=== PATIENT | male | born 1960 | race Caucasian/White ===

== ENCOUNTER 2025-04-28 06:22 | Day surgery (SDC) | payer BC, SELFPAY | END 2025-04-28 14:30 | disposition home or self-care (01) | LOC: GI 06:22 | PROVIDERS: ATTENDING PHYSICIAN Surgery | DX: K64.9 Unspecified hemorrhoids (principal); D17.5 Benign lipomatous neoplasm of intra-abdominal organs; K57.30 Diverticulosis of large intestine without perforation or abscess without bleeding; K63.89 Other specified diseases of intestine; K62.89 Other specified diseases of anus and rectum; D49.0 Neoplasm of unspecified behavior of digestive system; D12.3 Benign neoplasm of transverse colon; D12.4 Benign neoplasm of descending colon | CPT/HCPCS: 45385; 45380; 88305 ==

== ENCOUNTER 2025-05-20 06:19 | Day surgery (SDC) | payer BC, SELFPAY ==
[2025-05-20 11:46] VITALS: BMI 26.4
[2025-05-20 11:47] VITALS: BMI 26.4
[2025-05-20 11:48] VITALS: BP 145/73
[2025-05-20] MEDS: CELEBREX 200 MG PO (11:54)
[2025-05-20] MEDS: TYLENOL 1000 MG PO (11:54)
[2025-05-20] MEDS: NORMOSOL-R/PLASMALYTE-A 1000 IV (12:02)
[2025-05-20 12:12] VITALS: BMI 26.4
[2025-05-20 16:38] VITALS: BP 119/65; BP_SYST 12
--- NOTE | 2025-05-20 16:46 | W.IMMPOSTOP ---
Addendum entered and electronically signed by Teofilo De La Rosa MD 05/20/25 17:54:
updated patient in SDS
Original Note:
Surgical Immed Post Op Note
-
Primary Surgeon: Teofilo De La Rosa MD
Assisting Surgeon: None
Pre-op Diagnosis: Rectal polyp
Post-op Diagnosis: Rectal polyp
Procedure Performed: Transanal partial-thickness excision of rectal polyp
Anesthesia Type: Sedation with local
Specimen / Cultures: Rectal polyp (stitch with 2 tails machuca distal margin, stitch with 1 tail machuca left margin)
Estimated Blood Loss: 10 mL
Complications: None
Operative Findings: Pedunculated rectal polyp originating from the right posterior distal rectum, distal margin abutting the dentate line; excised polyp in its entirety with visibly negative margin; closed defect transversely with interrupted 2-0
Vicryl's; placed Gelfoam within the anal canal for prophylaxis and gauze with silk tape for dressing
[2025-05-20 16:49] VITALS: BP 115/61
--- NOTE | 2025-05-20 16:49 | OR.RPT ---
Operative Report
Operative Report
DATE OF OPERATION: 05/20/2025
SURGEON: Teofilo De La Rosa MD
PREOPERATIVE DIAGNOSIS: Distal rectal polyp
POSTOPERATIVE DIAGNOSIS: Distal rectal polyp
OPERATION: Exam under anesthesia, transanal partial�thickness excision of distal rectal polyp, bilateral pudendal nerve block
ASSISTANTS:
1. None
ANESTHESIA: Sedation with local
ESTIMATED BLOOD LOSS: 10 mL
FINDINGS:
1. Distal rectal polyp seen in the right posterior position with pedunculated and papillary appearance; distal margin was millimeters from the dentate line
2. Incidental findings: no proctitis and no concerning internal hemorrhoids, small to moderate external hemorrhoids without thrombosis
SPECIMENS:
1. Rectal polyp (stitch with 2 tails machuca distal margin, stitch with 1 tail machuca left lateral margin)
DRAINS: None
COMPLICATIONS: None
INDICATIONS: The patient is a 65-year-old male who presented with sensation of prolapse and was found to have a prolapsing rectal polyp on colonoscopy. The margin of the polyp appeared to encroach on the anorectal ring. Therefore, the patient was
recommended to have surgery to remove the polyp with negative margins. The operation was discussed with the patient in detail, including the risks, benefits and alternatives. Risks described included, but not limited to bleeding, infection, urinary
retention, damage to nearby structures such as the anal sphincter, fecal incontinence, anal stenosis, recurrence, positive margin and anesthetic risks. The patient understood and agreed to proceed. The consent was signed and placed in the chart.
PROCEDURE IN DETAIL: The patient was taken to the operating room. Sequential compression devices were placed bilaterally. The patient was placed on the operating table in supine position. Sedation was commenced without complication. The patient
was placed in lithotomy position with arms secured to the arm boards and pressure points padded. The buttocks were taped apart. The perineum was shaved, prepped and draped in the usual fashion. A time-out was performed verifying the correct
patient, procedure, operative site, positioning, and special equipment.
Local anesthesia used was a mixture of 30 mL of 0.25% Marcaine with epinephrine, 30mL of 1% lidocaine plain and 0.6 mg of dexamethasone. 40 mL was injected perianally at the beginning of the case. The anorectal exam was performed assessing all four
quadrants of the anal canal using Hill-Echevarria retractors in progressively increasing size. The distal rectal polyp was seen in the right posterior position. The distal margin was abutting the dentate line. The polyp appeared more pedunculated
with some papillary tissue along the stalk. The polyp was friable and oozed with manipulation. I estimate the polyp was about 2.5 cm in length and 1 cm in width. There were no other concerning findings. There was no proctitis or other masses.
There were no concerning internal hemorrhoids. There were small to moderate external hemorrhoids without evidence of thrombosis.
I gently dilated the anal canal using finger dilation. I selected an operative anoscope that best exposed the polyp. I scored the resection margin using electrocautery in an attempt to obtain 5 to 10 mm of margin. However, due to the proximity to
the dentate line, I scored to obtain a negative margin distally. Using electrocautery, I developed the submucosal plane starting distally. Due to oozing of blood, I injected a few cc of local with epinephrine along the submucosal plane, which
assisted with hemostasis. After dissecting fdc under the polyp, I dissected proximally and joined this to my previous dissection plane. The polyp was removed intact as one specimen. I tagged the distal margin with a stitch and left 2 tails.
I tagged the left lateral margin with a stitch and left one tail. Hemostasis was assured with electrocautery. The fibers of the muscularis propria were visible in the base of the wound. I closed the defect transversely using interrupted 2-0
Vicryl's. The edges of the defect came together easily. Hemostasis was assured.
The remainder of the local was injected. 5 mL was injected bilaterally for a pudendal nerve block. The rest was injected around the surgical site and perianally. Hemostasis was reassessed once more using the small Hill-Echevarria and was confirmed.
A Gelfoam roll was placed in the anal canal for bleeding prophylaxis. At this point, the procedure was complete. All needle, sponge and instrument counts were correct. The patient tolerated the procedure well and was transferred to the recovery room
in stable condition with gauze dressing in place secured with silk tape.
DICTATED BY: Teofilo De La Rosa MD
[2025-05-20 16:53] VITALS: BP 113/61; BP_SYST 14
[2025-05-20 17:08] VITALS: BP 117/59
[2025-05-20 17:32] VITALS: BP 143/78
== END 2025-05-20 17:41 | disposition home or self-care (01) ==
LOC: SDS 06:19
PROVIDERS: ATTENDING PHYSICIAN Surgery
DX: D12.8 Benign neoplasm of rectum (principal)
CPT/HCPCS: 45171; 88307